=== PATIENT | female | born 1955 | race African-American/Black ===

== ENCOUNTER 2016-06-09 13:09 | Emergency (ER) | payer OTHER ==
[~2016-06-09] VITALS: Ht 175.3 cm; Wt 75.0 kg
[~2016-06-09 13:09] MED LIST: BIMA2.5D4 EACHEYE; GABA300C; HYDR-519 PO; HYDR200T
[2016-06-09] MEDS ORDERED: KETOROLAC 60MG/2ML VIAL IM ONE (17:15)
[2016-06-09 17:37] VITALS: BP 128/90
== END 2016-06-09 17:51 | disposition home or self-care (01) ==
LOC: ER 14:00
DX: B02.9 Zoster without complications (principal); M54.2 Cervicalgia; I10 Essential (primary) hypertension; Z88.2 Allergy status to sulfonamides; Z91.041 Radiographic dye allergy status; Z79.899 Other long term (current) drug therapy; Z90.710 Acquired absence of both cervix and uterus
CPT/HCPCS: 96372; 99283; J1885; J7030; Z7610

== ENCOUNTER 2016-07-09 06:37 | Emergency (ER) | payer OTHER ==
[~2016-07-09] VITALS: Ht 175.3 cm; Wt 75.0 kg
[2016-07-09] MEDS ORDERED: IPRATROPIUM BROMIDE (0.02%) 0.5MG/2.5ML NEB HHN STA (07:29)
[2016-07-09] MEDS ORDERED: ALBUTEROL (0.083%) 2.5MG/3ML NEB HHN STA (07:29)
[2016-07-09] MEDS ORDERED: PREDNISONE 20MG TABLET PO STA (07:29)
[2016-07-09 07:32] VITALS: BP 147/94
[2016-07-09 07:48] LABS: EOSINOPHILS % 3.5 % (0.0-5.0); HEMATOCRIT. 40.3 % (36.0-48.0); HEMOGLOBIN. 13.7 g/dL (12.0-16.0); MEAN CORPUSCULAR HGB CONC 34.1 g/dL (31.0-37.0); MEAN CORPUSCULAR VOLUME 90.9 fL (81.0-99.0); MEAN PLATELET VOLUME 7.8 fl (7.4-10.4); MONOCYTES % 8.6 % (2.0-8.0); NEUTROPHILS % 65.9 % (40.0-76.0); PLATELET 186 x1000/uL (130-400); RED BLOOD CELL COUNT 4.43 mill/uL (4.2-5.4); RED CELL DISTRIBUTION WIDTH 15.7 % (11.6-14.6); WHITE BLOOD COUNT 3.7 x1000/uL (4.5-11.0)
[2016-07-09 07:55] LABS: PROTHROMBIN TIME 10.6 sec
[2016-07-09 08:05] LABS: ALANINE AMINOTRANSFERASE 31 IU/L (13-61); ALBUMIN 3.2 g/dL (3.4-5.0); ANION GAP 11; CALCIUM 9.5 mg/dL (8.5-10.1); CARBON DIOXIDE 29 mEq/L (21-32); CHLORIDE 108 mEq/L (98-107); INDEX HEMOLYSI 1 (1-3); INDEX ICTERIC 1 (1-4); INDEX LIPEMIC 1 (1-3); NT PRO B-TYPE NATRIURETIC PEP 78 pg/mL (5-125); TROPONIN I < 0.02 ng/mL (0.00-0.04); UREA NITROGEN BLOOD 6 mg/dL (7-21); eGFR > 60 mL/min (>60)
== END 2016-07-09 10:33 | disposition left against medical advice (07) ==
LOC: ER 06:38
DX: J45.901 Unspecified asthma with (acute) exacerbation (principal); R06.00 Dyspnea, unspecified; I10 Essential (primary) hypertension; Z91.041 Radiographic dye allergy status; Z88.2 Allergy status to sulfonamides; Z79.899 Other long term (current) drug therapy; Z90.710 Acquired absence of both cervix and uterus
CPT/HCPCS: 36415; 71010; 80053; 83880; 84484; 85025; 85610; 93005; 94640; 99285; J7512; J7611; Z7610

== ENCOUNTER 2016-07-13 00:54 | Emergency (ER) | payer MEDICAID, OTHER ==
[~2016-07-13] VITALS: Ht 175.3 cm; Wt 75.9 kg
[2016-07-13] MEDS ORDERED: PREDNISONE 20MG TABLET PO STA (01:23)
[2016-07-13] MEDS ORDERED: IPRATROPIUM BROMIDE (0.02%) 0.5MG/2.5ML NEB HHN STA (01:23)
[2016-07-13] MEDS ORDERED: ALBUTEROL (0.083%) 2.5MG/3ML NEB HHN STA (01:23)
[2016-07-13 01:47] VITALS: BP 128/92
== END 2016-07-13 02:28 | disposition home or self-care (01) ==
LOC: ER 00:56
DX: J20.9 Acute bronchitis, unspecified (principal); H40.9 Unspecified glaucoma; I10 Essential (primary) hypertension; M32.9 Systemic lupus erythematosus, unspecified; Z90.710 Acquired absence of both cervix and uterus; Z91.041 Radiographic dye allergy status; Z88.2 Allergy status to sulfonamides; Z79.899 Other long term (current) drug therapy
CPT/HCPCS: 94640; 99283; J7512; J7611; Z7610

== ENCOUNTER 2017-04-05 09:47 | Emergency (ER) | payer OTHER ==
[~2017-04-05] VITALS: Ht 175.3 cm; Wt 80.0 kg
[2017-04-05 10:07] VITALS: BP 141/92
== END 2017-04-05 13:11 | disposition home or self-care (01) ==
LOC: ER 11:12
DX: S60.420A Blister (nonthermal) of right index finger, initial encounter (principal); M32.9 Systemic lupus erythematosus, unspecified; I10 Essential (primary) hypertension; H40.9 Unspecified glaucoma; Z90.710 Acquired absence of both cervix and uterus; Z91.041 Radiographic dye allergy status; Z88.2 Allergy status to sulfonamides; X58.XXXA Exposure to other specified factors, initial encounter; Y93.89 Activity, other specified; Y92.018 Other place in single-family (private) house as the place of occurrence of the external cause
CPT/HCPCS: 99282

== ENCOUNTER 2019-02-25 23:43 | Emergency (ER) | payer MEDICARE, OTHER ==
[~2019-02-25] VITALS: Ht 172.7 cm; Wt 71.6 kg
[~2019-02-25 23:43] MED LIST changes: -HYDR200T; +HYDR200T80
[2019-02-26] MEDS ORDERED: NA PHOS,M-B/NA PHOS,DI-BA ENEMA 118ML PR ONE (01:00)
[2019-02-26 01:15] LABS: BASOPHILS % 0.2 % (0.0-2.0); EOSINOPHILS % 0.9 % (0.0-5.0); HEMATOCRIT. 37.5 % (36.0-48.0); HEMOGLOBIN. 12.6 g/dL (12.0-16.0); LYMPHOCYTES % 8.5 % (20.0-50.0); MEAN CORPUSCULAR HEMOGLOBIN 28.8 pg (28.0-32.0); MEAN CORPUSCULAR VOLUME 85.7 fL (81.0-99.0); MEAN PLATELET VOLUME 7.6 fl (7.4-10.4); MONOCYTES % 5.5 % (2.0-8.0); NEUTROPHILS % 84.9 % (40.0-76.0); PLATELET 281 x1000/uL (130-400); RED BLOOD CELL COUNT 4.38 mill/uL (4.2-5.4)
[2019-02-26 01:18] LABS: CHLORIDE 96 mEq/L (98-107)
[2019-02-26 05:00] VITALS: BP 152/93
== END 2019-02-26 05:14 | disposition left against medical advice (07) ==
LOC: ER 23:43
DX: K59.00 Constipation, unspecified (principal); R00.2 Palpitations; R94.31 Abnormal electrocardiogram [ECG] [EKG]; I51.9 Heart disease, unspecified; M32.9 Systemic lupus erythematosus, unspecified; E05.90 Thyrotoxicosis, unspecified without thyrotoxic crisis or storm; Z98.890 Other specified postprocedural states; Z90.710 Acquired absence of both cervix and uterus; Z88.2 Allergy status to sulfonamides; Z91.041 Radiographic dye allergy status
CPT/HCPCS: 36415; 71045; 80053; 84484; 85025; 93005; 99284

== ENCOUNTER 2019-03-26 09:26 | Emergency (ER) | payer MEDICARE, OTHER ==
[~2019-03-26] VITALS: Ht 172.7 cm; Wt 68.0 kg
[2019-03-26 10:41] VITALS: BP 100/67
== END 2019-03-26 16:48 | disposition left against medical advice (07) ==
LOC: ER 10:25
DX: R06.02 Shortness of breath (principal); Z53.21 Procedure and treatment not carried out due to patient leaving prior to being seen by health care provider
CPT/HCPCS: 93005

== ENCOUNTER 2019-04-03 12:32 | Emergency (ER) | payer MEDICARE, OTHER ==
[~2019-04-03] VITALS: Ht 165.1 cm; Wt 70.0 kg
[2019-04-03] MEDS ORDERED: NA PHOS,M-B/NA PHOS,DI-BA ENEMA 118ML PR ONE (17:30)
[2019-04-03 17:36] VITALS: BP 120/70
[2019-04-03] MEDS ORDERED: MAGNESIUM CITRATE 300ML SOLUTION PO ONE (18:15)
[2019-04-03] MEDS ORDERED: BISACODYL 10MG SUPP PR ONE (18:15)
== END 2019-04-03 20:23 | disposition home or self-care (01) ==
LOC: ER 12:32
DX: K59.00 Constipation, unspecified (principal); M32.9 Systemic lupus erythematosus, unspecified; Z85.89 Personal history of malignant neoplasm of other organs and systems; Z92.3 Personal history of irradiation; Z92.21 Personal history of antineoplastic chemotherapy; Z91.041 Radiographic dye allergy status; Z88.2 Allergy status to sulfonamides
CPT/HCPCS: 99283

== ENCOUNTER → 2019-04-16 | Emergency (ER) | payer MEDICARE, OTHER ==
[~2019-04-16] VITALS: Ht 170.2 cm; Wt 77.0 kg
[2019-04-16 18:38] VITALS: BP 129/89
== END | disposition left against medical advice (07) ==
LOC: ER 18:21
DX: R09.89 Other specified symptoms and signs involving the circulatory and respiratory systems (principal); Z53.21 Procedure and treatment not carried out due to patient leaving prior to being seen by health care provider